=== PATIENT | female | born 1970 | race African-American/Black ===

== ENCOUNTER → 2020-03-04 | Day surgery (SDC) | payer OTHER ==
[~2020-03-04] MED LIST: FENTANYL CITRATE/PF 100MCG/2 ML INJ ONE; MIDAZOLAM HCL 2 MG/2 ML VIAL ONE; MULTIVITAMINS1 EAC7 PO; PROPOFOL IV EMULSION 10 MG/ML 20 ML VIAL ONE
[2020-03-04 13:05] VITALS: BP 120/75
== END | disposition home or self-care (01) ==
LOC: OR 11:10
PROVIDERS: ATTEND Internal Medicine Gastroenterology
DX: D12.3 Benign neoplasm of transverse colon (principal); K64.8 Other hemorrhoids; K31.89 Other diseases of stomach and duodenum; K44.9 Diaphragmatic hernia without obstruction or gangrene; R76.8 Other specified abnormal immunological findings in serum; K29.50 Unspecified chronic gastritis without bleeding; K20.9 Esophagitis, unspecified; G47.00 Insomnia, unspecified; M54.9 Dorsalgia, unspecified; Z01.810 Encounter for preprocedural cardiovascular examination; Z11.59 Encounter for screening for other viral diseases
CPT/HCPCS: 43239; 45384; 87635; 93005; J2250; J2704; J3010